=== PATIENT | female | born 1955 | race Caucasian/White ===

== ENCOUNTER 2025-02-27 19:53 | Inpatient (IN) | payer MEDICARE, SELFPAY ==
[2025-02-27 15:15] VITALS: BP 152/92
[2025-02-27 15:16] VITALS: BMI 37.2
--- NOTE | 2025-02-27 15:48 | ED.GENMED ---
History of Present Illness
General
Chief Complaint: Facial Problem
Source: patient
Exam Limitations: none
Time Seen by Provider: 02/27/25 15:37
Nursing documentation reviewed up to this point in time: agreed with
History of Present Illness
History of Present Illness:
The patient is a 69-year-old female who reports that she was diagnosed with herpes zoster, affecting her left eye, about 2 weeks ago. The diagnosis was confirmed by her day light relief operator. Patient has taken 2 weeks of valacyclovir twice daily as well
as prednisone eyedrops. Patient reports that over the last several days, she has developed 'a numbness, tightness, tingling, and swollen feeling' to her left cheek and left jaw area. The feeling also extends into the left aspect of patient's
mouth, making it difficult for her to chew. Patient has no difficulty speaking or swallowing. Patient reports no fever but occasionally feels chills. She denies headache. Patient was told to go to the emergency department to rule out facial
abscess. Patient also feels slight swelling under her chin. Patient overall feels that it is difficult for her to chew and smile due to this feeling. Patient feels as though her face 'feels twisted'. Patient denies weakness and numbness of her
left arm and leg. She has had no difficulty walking. She denies dizziness.
Past History
Past History
ED Past Medical History: Hypercholesterolemia and Hypothyroidism
ED Past Surgical History: Other
Social History
Tobacco: Non-smoker
Alcohol: Occasional
Drug: None
Personal:
Living: with family
Employment: Other
Family History
Family History: Other
Review of Systems
Review of Systems
Allergies reviewed?: Yes
All Other Systems: ROS reviewed and negative except as documented in HPI and ROS
Constitutional: Reports chills
EENT: Reports mouth pain and other
Respiratory: Reports no symptoms
Cardiac: Reports no symptoms
ABD/GI: Reports no symptoms
: Reports no symptoms
Musculoskeletal: Reports no symptoms
Skin: Reports no symptoms
Neurological: Reports numbness (Tingling and numbness feeling to left cheek and under her left chin and left lips and left side of mouth.)
Endocrine: Reports no symptoms
Hematologic/Lymphatic: Reports no symptoms
Psychiatric: Reports no symptoms
Phy Exam
Physical Exam
Physical Exam:
Physical Exam
General: no apparent distress, not acutely ill. Patient's face appears slightly asymmetric.
Neck: supple. no meningeal signs. normal posterior pharynx. Airway is widely patent. No stridor. Able to swallow saliva. Face looks slightly asymmetric. Difficulty smiling 'due to pain and tightness of left face'.
Mild tenderness along left jawline area and under chin. Mild swelling and tenderness of skin of left cheek and left angle of mandible area. Lymphadenopathy under chin.
Heart: s1/s2 regular rate and rhythm, no murmur. equal radial pulses.
Lungs: no acute respiratory distress. clear bilaterally
Abdomen: Soft, nontender
Neuro: alert and oriented. Patient reports diminished sensation along left cheek, under left chin and along left jawline. 5 out of 5 strength in all extremities. Equal sensation in bilateral extremities. Extraocular
muscles intact.
Skin: no rash. Mild left facial skin tenderness and swelling
Psychiatric: well kept. interactive and cooperative
Extremities: no edema. no calf tenderness. negative homans. good distal pulses
Course
Orders/Labs/Results
Orders:
Orders
02/27/25 15:47
CT Facial Bones W/ Iv Contrast Urgent
Comment:
Reason For Exam: shingles zoster now with left facial swelling
02/27/25 16:03
Complete Blood Count/With Diff Urgent
Comprehensive Metabolic Panel Urgent
02/27/25 18:17
Clindamycin 600 mg/50 ml [Cleocin] 600 mg in 50 ml IV NOW
02/27/25 18:34
Meropenem [Merrem] 1,000 mg IV NOW STA
02/27/25 18:46
Sterile Water [Sterile Water For Injection] 20 ml .ROUTE .STK-MED
02/27/25 19:24
0.9% Sodium Chloride 500 ml [Nss] 500 ml IV BOLUS
Abnormal Lab Results
02/27/25
16:03
WBC 12.5 H 10^3/uL
(4.8-10.8)
MCHC 32.9 L g/dL
(33.0-37.0)
RDW 14.9 H %
(11.5-14.5)
Absolute Neuts (auto) 8.6 H 10^3/uL
(1.4-6.5)
Absolute Monos (auto) 1.1 H 10^3/uL
(0.1-0.6)
Creatinine 0.5 L mg/dL
(0.6-1.0)
Glucose 110 H mg/dl
(70-99)
02/27/25 16:03
02/27/25 16:03
Vital Signs
Initial and Last Documented VS:
Initial Vital Signs
Temp Pulse Resp Pulse Ox
98.3 F 88 16 98
02/27/25 13:37 02/27/25 13:37 02/27/25 13:37 02/27/25 13:37
Last Documented Vital Signs
Temp Pulse Resp BP Pulse Ox
98.6 F 92 18 170/93 93
02/27/25 18:09 02/27/25 18:42 02/27/25 18:42 02/27/25 18:42 02/27/25 18:42
MDM/Problems Addressed
Differential Diagnosis Includes:
Pink's palsy, facial cellulitis, dental abscess
MDM/Problems Addressed:
Patient presents with swelling, tightness of left face and jawline with swollen lymph nodes
Acute Exacerbation and/or Progression of Chronic Illness:
Patient is acutely hypertensive, likely due to anxiety and discomfort in face
Acute Exacerbation and/or Progression of Chronic Illness: HTN
*Radiology
Radiology exam reviewed: radiology read reviewed
*Pulse Oximetry
Patient hypoxic: no
*EKG
Interpreted by ED Provider?: NA
*Engineering Test Mechanic Interpretation
Rate: Engineering Test Mechanic- N/A
*Critical Care Note
Total Time (30-74mins, 75-104mins- exclusive of procedures): Not Applicable
Data Reviewed
Source: patient
Patient Management
Social determinants of health affecting care: Living situation and Strong social support
Discussion with other providers: Hospitalist and Other
Escalation/DeEscalation of care consider admission/obs:
Case discussed with infectious disease who recommended meropenem
ED Attending Note
-
Portions of this chart may have been created with voice recognition software.� Occasional wrong word or��sound alike� substitutions may have occurred due to the inherent limitations of voice recognition software.
Discharge Plan
Departure
Patient Disposition: Admit
Date of Disposition: 02/27/25
Time of Disposition: 18:10
Admit to: Med/Surg
Presentation/result/management discussed w/ accepting MD/DO: Hospitalist
Condition: Good
Covid-19: Not Applicable
Discharge Problem:
Left facial cellulitis
Prescriptions:
No Action
atorvastatin [Lipitor] 20 mg Tablet
20 mg PO QPM
fexofenadine [Judy] 60 mg Tablet
60 mg PO DAILY
valacyclovir [Valtrex] 500 mg Tablet
500 mg PO BID
Rx Instructions:
for 30 days starting 02/12/25
levothyroxine [Synthroid] 75 mcg Tablet
75 mcg PO DAILY
prednisolone acetate 1 % Drops,Suspension
1 drp LEFT EYE BID
ibuprofen [Motrin] 400 mg Tablet
400 mg PO Q6HPRN PRN (Reason: mild pain)
Referrals:
UNKNOWN - PT DOES,NOT KNOW [Family Provider] -
Interventions
Interventions:
*Risk Screen - Suicide Last Done: 02/27/25 13:37
*General Assessment Last Done: 02/27/25 14:03
*Neglect/Abuse Screening Last Done: 02/27/25 13:37
*ED- Fall Risk Assessment Last Done: 02/27/25 14:03
*ED COVID-19 Vaccine History Last Done: 02/27/25 14:03
ED- Neurological Assessment Last Done: 02/27/25 14:03
ED-Skin Assessment Last Done: 02/27/25 14:03
Discharge Date and Time
Print Language: AZERI
[2025-02-27 16:11] LABS: % Basophils 0.5 % (0-2); % Eosinophils 0.6 % (0-6); % Immature Granulocytes 0.3 % (0-0.5); % Lymphocytes 21.1 % (20.5-51.1); % Neutrophils 68.5 % (42.2-75.2); Absolute Basophils 0.1 10^3/uL (0-0.2); Absolute Eosinophils 0.1 10^3/uL (0-0.7); Absolute Lymphocytes 2.6 10^3/uL (1.2-3.4); Absolute Monocytes 1.1 10^3/uL (0.1-0.6); Absolute Neutrophils 8.6 10^3/uL (1.4-6.5); Hematocrit 42.8 % (37.0-47.0); Hemoglobin 14.1 g/dL (12.0-16.0); Mean Corp Hgb Conc. 32.9 g/dL (33.0-37.0); Mean Corpuscular Hgb 29.9 pg (27.0-31.0); Mean Corpuscular Volume 90.7 fL (81.0-99.0); Mean Platelet Volume 9.8 fL (7.4-10.4); Nucleated Red Blood Cells % 0 %; Platelet Count 357 10^3/uL (130-400); Red Blood Cell Count 4.72 10^6/uL (4.20-5.40); Red Cell Dist. Width 14.9 % (11.5-14.5); White Blood Cell Count 12.5 10^3/uL (4.8-10.8)
[2025-02-27 16:30] LABS: ALT (SGPT) 18 U/L (0-35); AST (SGOT) 23 U/L (14-36); Alkaline Phosphatase 89 U/L (38-126); Blood Urea Nitrogen 15 mg/dl (7-17); Calcium 10.1 mg/dl (8.4-10.2); Carbon Dioxide 29 mmol/L (22-30); Chloride 101 mmol/L (98-107); Estimated Creatinine Clearance 100 ml/min; Glucose 110 mg/dl (70-99); Potassium 4.1 mmol/L (3.5-5.1); Sodium 142 mmol/L (135-145); Total Bilirubin 1.2 mg/dl (0.2-1.3); Total Protein 8.2 g/dl (6.3-8.2); eGFR > 60.00
--- NOTE | 2025-02-27 18:24 | HPS.HSE ---
Addendum entered and electronically signed by Ivonne Pruitt MD 02/27/25 20:41:
patient has a history of psoriatic arthritis but is not on immunosuppressants (trialed in past and ineffective)
Addendum entered and electronically signed by Ivonne Pruitt MD 02/27/25 19:35:
IV Meropenem started in setting of severe allergic reaction to pencillin
Original Note:
Family Physician
-
Family Physician: NOT KNOW UNKNOWN - PT DOES
Chief Complaint
-
left cheek and jawline swelling
History of Present Illness
Ms. Mikayla Lanier is a 69 yo woman with hx hypothyroidism, HLD, recent diagnosis herpes zoster affecting left eye s/p 2 weeks of Valacyclovir and prednisone eye drops presents to the ER with tightness and swelling to left side of face.
Patient states last month she had a significant viral infection with high fevers and fatigue. Fevers resolved. She then noticed discomfort in left eye. She saw clerk telegraph service who diagnosed her with herpes zoster ophthalmicus. She denies having
lesions on her face or skin. With treatment of Valacyclovir and drops, symptoms are much improved but continues to get intermittent pain. Yesterday she noticed left cheek pain and tightness. She is having trouble eating solid food. No trouble
breathing or swallowing.
No fevers/chills. No nausea/vomiting. No abdominal pain. NO rash or LE swelling.
Medical History
Past Medical History
Past Medical History: Reports HTN and Hypothyroidism
Past Surgical History: Reports Other
Social History
Tobacco: Non-smoker
Alcohol: None
Family History
Family History: Not pertinent
Allergies / Home Medications
Allergies reflects when Allergies were last updated in [facility].
Home Medications with original date entered in [facility]
Allergy/Medication List:
Allergies
Allergy/AdvReac Type Severity Reaction Status Date / Time
aspirin Allergy Hives Verified 02/27/25 15:17
Penicillins Allergy Anaphylaxis Verified 02/27/25 15:17
Home Medications
atorvastatin 20 mg tablet (Lipitor) 20 mg PO QPM 02/27/25
fexofenadine 60 mg tablet 60 mg PO DAILY 02/27/25
ibuprofen 400 mg tablet 400 mg PO Q6HPRN PRN mild pain 02/27/25
levothyroxine 75 mcg tablet (Synthroid) 75 mcg PO DAILY 02/27/25
prednisolone acetate 1 % eye drops,suspension 1 drp LEFT EYE BID 02/27/25
valacyclovir 500 mg tablet (Valtrex) 500 mg PO BID 02/27/25
Review of Systems
-
History Source: Patient
A 12 point ROS was completed and negative except as noted: Yes
Physical Exam
Vital Signs
Vital Signs
Temp Pulse Resp BP Pulse Ox
98.6 F 92 18 152/92 95
02/27/25 18:09 02/27/25 18:09 02/27/25 18:09 02/27/25 15:15 02/27/25 18:09
Physical Exam
General: No Apparent Distress
HEENT: PERRLA (sclera non erythematous, no discharge ) and Other (left lower cheek with swelling, tenderness to cough, tender lymphadenopathy )
Respiratory: Clear; No Wheezes
Cardiac: S1/S2 and Regular Rhythm
GI: Soft and Non Tender
Musculoskeletal: No Edema
Skin: Warm and Dry; No Rash
Neuro: AO x 3
Psych: Calm
Laboratory Results
-
02/27/25 16:03
02/27/25 16:03
Laboratory Results
Total Bilirubin 1.2 mg/dl (0.2-1.3) 02/27/25 16:03
AST 23 U/L (14-36) 02/27/25 16:03
ALT 18 U/L (0-35) 02/27/25 16:03
Alkaline Phosphatase 89 U/L (38-126) 02/27/25 16:03
Data Reviewed
-
Diagnostic Radiology: Report Reviewed by me
Lab Data: Labs Reviewed by me
Impression/Plan
-
Ms. Mikayla Lanier is a 69 yo woman with hx hypothyroidism, HLD, recent diagnosis herpes zoster affecting left eye s/p 2 weeks of Valacyclovir and prednisone eye drops presents to the ER with tightness and swelling to left side of face.
Triage VS: T 98.3, P 88, RR 16, SpO2 98%
LABS: WBC 12.5, Hg 14.1, PLT 357, Na 142, K+ 4.1, Cl 101, CO2 29, Cr 0.5, Glucose [address]
IMPRESSION:
Some edematous changes of the superficial left facial soft tissues with no findings to confirm well-formed abnormal focal fluid collection such as an abscess.
Numerous bilateral cervical lymph nodes, slightly greater in size/number throughout the soft tissues of the left neck as compared to the right.
Left Facial Cellulitis
Sepsis 2/2 above (elevated WBC, P > 90)
-no zoster lesions that would explain superimposed bacterial infection
-case discussed between ER and Dr. Medina, will continue IV Meropenem
-IVF
-formal ID consult tomorrow
Recent treatment Herpes Zoster Ophthalmicus
-continue Valacyclovir and prednisolone drops
Hypothyroidism - CLOSING MANAGER Synthroid
HLD - CLOSING MANAGER Statin
DVT PPx Lovenox subQ
FULL CODE
[2025-02-27 18:42] VITALS: BP 170/93
[2025-02-27] MEDS: MERREM 1000 MG IV (19:05)
[2025-02-27] MEDS: NSS 500 IV (19:35)
[2025-02-27 21:25] VITALS: BP 147/83
[2025-02-27] MEDS: NSS 1000 IV (22:11)
[2025-02-27] MEDS: PRED FORTE 1% EYE DROPS 1 DROP LEFT EYE (22:12)
[2025-02-27] MEDS: VALTREX 500 MG PO (22:13)
[2025-02-27] MEDS: MOTRIN 400 MG PO (22:36)
[2025-02-27 22:39] VITALS: BP 157/77
[2025-02-28] MEDS: STERILE WATER FOR INJECTION 20 ML IV ×3 (02:19→18:44)
[2025-02-28] MEDS: MERREM 1000 MG IV ×3 (02:19→18:48)
[2025-02-28 05:35] LABS: % Basophils 0.6 % (0-2); % Eosinophils 1.5 % (0-6); % Immature Granulocytes 0.2 % (0-0.5); % Lymphocytes 25.9 % (20.5-51.1); % Monocytes 9.5 % (1.7-9.3); % Neutrophils 62.3 % (42.2-75.2); Absolute Basophils 0.1 10^3/uL (0-0.2); Absolute Eosinophils 0.2 10^3/uL (0-0.7); Absolute Lymphocytes 2.5 10^3/uL (1.2-3.4); Absolute Monocytes 0.9 10^3/uL (0.1-0.6); Mean Corp Hgb Conc. 33.3 g/dL (33.0-37.0); Mean Corpuscular Hgb 30.1 pg (27.0-31.0); Mean Corpuscular Volume 90.3 fL (81.0-99.0); Mean Platelet Volume 9.8 fL (7.4-10.4); Nucleated Red Blood Cells % 0 %; Platelet Count 314 10^3/uL (130-400); Red Blood Cell Count 4.32 10^6/uL (4.20-5.40); White Blood Cell Count 9.7 10^3/uL (4.8-10.8)
[2025-02-28 06:02] LABS: Blood Urea Nitrogen 14 mg/dl (7-17); Calcium 9.4 mg/dl (8.4-10.2); Carbon Dioxide 27 mmol/L (22-30); Chloride 108 mmol/L (98-107); Estimated Creatinine Clearance 100 ml/min; Glucose 86 mg/dl (70-99); Potassium 3.9 mmol/L (3.5-5.1); Sodium 142 mmol/L (135-145); eGFR > 60.00
[2025-02-28 06:49] LABS: Hepatitis C Antibody Negative (Negative)
[2025-02-28 07:00] VITALS: BP 143/67
[2025-02-28] MEDS: CLARITIN 10 MG PO (08:22)
[2025-02-28] MEDS: VALTREX 500 MG PO ×2 (08:22→20:33)
[2025-02-28] MEDS: SYNTHROID 75 MCG PO (08:22)
[2025-02-28] MEDS: PRED FORTE 1% EYE DROPS 1 DROP LEFT EYE ×2 (08:22→22:06)
--- NOTE | 2025-02-28 12:41 | CON.ID ---
Consultation
-
Date/Time Consultation Requested: February 27, [id number]
Date/Time Consultation Performed: February 28, 2025 1245
Requesting Provider: Dr. Ivonne Pruitt
Performing Provider: Dr. Ashlie Bhatti
Reason for Consultation: Facial cellulitis
Chief Complaint / Past History
Chief Complaint
Left face swelling and firmness.
History of Present Illness
69-year-old female with history of psoriatic arthritis currently not on treatment, hypothyroidism who presented to the hospital on February 27 due to left face discomfort and swelling. She started feeling unwell back in December 2024 when she had
persistent fever, fatigue, chills, dry cough. She was diagnosed with viral illness by her PCP. She was prescribed an antibiotic. Her symptoms lasted for a month then resolved. During the viral illness, she noted persistent left eye tearing,
discomfort, light sensitivity, mild blurriness. Her PCP prescribed eyedrops without improvement. She finally went to see her wildlife conservation professor 2 weeks ago, end of January. The wildlife conservation professor told her she had intraocular herpes zoster and prescribed
Valacyclovir 500 mg p.o. twice daily, lifelong, plus steroid drops. Of note patient without external lesions. She recalled getting one dose (not 2) of shingles vaccine 7 years ago. Her left eye symptoms improved on valacyclovir and steroid drops.
She had follow-up with the wildlife conservation professor 1 week ago and noted significant improvement in exam. Patient lives in [place] but has a house in [facility]. She came up to [place] a week ago. 2 days ago she noted bilateral jaw pain and
facial tightness. The left side of her face then became edematous, warm to the touch. She had difficulty speaking and swallowing. Positive chills. No fever. She came to the ER yesterday. CT of the facial bone showed edematous changes of the
superficial left facial soft tissue without abscess, numerous bilateral cervical lymph nodes left greater than right. She has history of anaphylaxis with penicillin about 15 years ago. She was started on IV meropenem yesterday. Today she reports
that the swelling has improved. She can now speak and swallow better. She denies any wounds or abrasions on her face. She does not shave her face. No specific tooth pain. She lives by herself. No ill contacts. No recent travel. No pets. No
recent headache, sinus congestion, or sore throat.
Past History
Additional Past Medical History:
Psoriatic arthritis not on tx (last biologic 06/2024)
Hypothyroidism
HLD
Recent Herpes zoster ophthalmicus in left eye
Additional Past Surgical History:
Cataract surgery
Partial thyroidectomy
Allergy History:
aspirin Allergy (Verified 02/27/25 15:17)
Hives
Penicillins Allergy (Verified 02/27/25 15:17)
Anaphylaxis
Medications Reviewed: Yes
Current Antibiotics:
Meropenem 1g IV q8
Valacyclovir 500mg po bid (suppressive tx)
Social History
Tobacco: Non-Smoker
Alcohol: None
Drug: None
Living: Alone
Employment: Not Employed
Family History
Family History: Not Pertinent
Review of Systems
Review of Systems
General: Chills and Change in Appetite
HEENT: Negative Stiff Neck, Sinus Problems, Headache or Pharyngitis
Cardiovascular: Negative Chest Pain or Dyspnea
Respiratory: Negative Dyspnea or Cough
Gasteroenterology: Negative Nausea, Vomiting or Diarrhea
Genital / Urological: Negative Dysuria or Flank Pain
Endocrine: Negative Weakness
Neurological: Negative Dizziness
All systems: All other systems were reviewed and were negative
Vital Signs
Temp Pulse Resp BP Pulse Ox
98.1 F 72 16 143/67 97
02/28/25 07:00 02/28/25 07:00 02/28/25 07:00 02/28/25 07:00 02/28/25 07:00
Physical Exam
Physical Exam
Constitutional: No Acute Distress and Comfortable
Head: Other (left lower half of face with mild edema, slightly warm, no erythema)
Eyes: Pupils Equal, Pupils Round, No Conjunctival Hemorrhage and Sclera Anicteric; Negative Ocular Discharge
Pharynx: Benign
Oral: Negative No Ulcers
Lymph Nodes: Lymphadenopathy (left submandibular)
Cardiovascular: Regular Rate and S1/S2
Pulmonary: Clear
Gastrointestinal: Soft, Non Tender, Non Distended and Normal Bowel Sounds
Genito-Urinary: Negative CVA Tenderness
Extremities: Negative Edema
Neurological: AO x 3
Lab / Diagnostic Study Results
02/28/25 05:27
02/28/25 05:27
Abs Immat Gran (auto) 0.0 10^3/uL (0-0.05) 02/28/25 05:27
Absolute Neuts (auto) 6.0 10^3/uL (1.4-6.5) 02/28/25 05:27
Absolute Lymphs (auto) 2.5 10^3/uL (1.2-3.4) 02/28/25 05:27
Absolute Monos (auto) 0.9 10^3/uL (0.1-0.6) H 02/28/25 05:27
Absolute Basos (auto) 0.1 10^3/uL (0-0.2) 02/28/25 05:27
Immature Gran % 0.2 % (0-0.5) 02/28/25 05:27
Neutrophils % 62.3 % (42.2-75.2) 02/28/25 05:27
Lymphocytes % 25.9 % (20.5-51.1) 02/28/25 05:27
Monocytes % 9.5 % (1.7-9.3) H 02/28/25 05:27
Eosinophils % 1.5 % (0-6) 02/28/25 05:27
Basophils % 0.6 % (0-2) 02/28/25 05:27
Microbiology Results
02/27/25 CT facial bones: Some edematous changes of the superficial left facial soft tissues with no findings to confirm well-formed abnormal focal fluid collection such as an abscess. Numerous bilateral cervical lymph nodes, slightly greater in
size/number throughout the soft tissues of the left neck as compared to the right.
Assessment / Plan
# Left face cellulitis
# PCN allergy - anaphylaxis. Never had cephalosporin
- CT face: no abscess
- Cellulitis improving on meropenem (d2)
- If continues to improve tomorrow, can dc on Linezolid 600mg po bid through 03/05/25
Avoid tyramine-rich food products while on Linezolid.
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
-Left orbit discomfort x 4-6 weeks then diagnosed with left intraocular herpes zoster 2 weeks ago, placed on lifelong Valacyclovir 500mg bid.
- Left orbit sxs resolved
- Follow-up with ophtho.
- DC airborne isolation.
# Conditions LIMITED RADIOLOGY TECHNICIAN
Psoriatic arthritis not on tx (last biologic 06/2024)
Hypothyroidism
HLD
Recent Herpes zoster ophthalmicus in left eye
[2025-02-28] MEDS: MOTRIN 400 MG PO ×2 (14:19→20:41)
--- NOTE | 2025-02-28 14:25 | W.PN.HOSP.TC ---
Today's Communication/Plan
-
Monitor vital signs see plan
Continue with antibiotics
On antiviral
Assessment / Plan
Assessment / Plan
General: No Apparent Distress
HEENT: PERRLA (sclera non erythematous, no discharge ) and Other (left lower cheek with swelling, tenderness to cough, tender lymphadenopathy )
Respiratory: Clear; No Wheezes
Cardiac: S1/S2 and Regular Rhythm
GI: Soft and Non Tender
Musculoskeletal: No Edema
Skin: Warm and Dry; No Rash
Neuro: AO x 3
Psych: Calm
Left Facial Cellulitis
Sepsis 2/2 above (elevated WBC, P > 90)
-no zoster lesions that would explain superimposed bacterial infection
-case discussed between ER and Dr. Medina, will continue IV Meropenem
-IVF
ID evaluation
Recent treatment Herpes Zoster Ophthalmicus
-continue Valacyclovir and prednisolone drops
Per patient, per her recent examination this was getting better
Hypothyroidism - TECHNICAL SERVICE REPRESENTATIVE Synthroid
History of psoriatic arthritis however currently not on any immunosuppressant
Monitor
HLD - TECHNICAL SERVICE REPRESENTATIVE Statin
DVT PPx Lovenox subQ
FULL CODE
Anticipated Discharge: 24 - 48 hours
Subjective/Interval History
-
Date of Service: February 28, 2025
Denies nausea
Objective Data
-
Labs:
Laboratory Results
02/28/25
05:27
WBC 9.7
Hgb 13.0
Hct 39.0
Plt Count 314
Sodium 142
Potassium 3.9
Chloride 108 H
Carbon Dioxide 27
BUN 14
Creatinine 0.5 L
Glucose 86
Calcium 9.4
Vital Signs:
Vital Signs
Temp Pulse Resp BP Pulse Ox
98.1 F 72 16 143/67 97
02/28/25 07:00 02/28/25 07:00 02/28/25 07:00 02/28/25 07:00 02/28/25 07:00
I&O
02/27/25 02/28/25 03/01/25
06:59 06:59 06:59
Intake Total 1280 / 1280
Balance 1280 / 1280
[2025-02-28 14:40] VITALS: BP 153/67
[2025-02-28 16:03] VITALS: BMI 37.1
[2025-02-28 18:04] VITALS: BP 149/74
--- NOTE | 2025-02-28 18:29 | PTCARENOTE ---
pt transferred from ED AOx3 denies pain. LCTA B/L RA. abd round obese +BSx4. cont b&B. only trace edema noted to left posterior cheek/jawline. No redness or warmth. CB in reach- instructed to use
[2025-02-28] MEDS: LOVENOX 40 MG SC (18:39)
[2025-02-28] MEDS: LIPITOR 20 MG PO (18:39)
[2025-02-28] MEDS: MERREM IV (22:01)
[2025-02-28] MEDS: STERILE WATER FOR INJECTION IV (22:01)
[2025-02-28 23:00] VITALS: BP 117/60
[2025-03-01] MEDS: STERILE WATER FOR INJECTION 20 ML IV ×2 (04:11→10:13)
[2025-03-01] MEDS: MERREM 1000 MG IV ×2 (04:11→10:13)
[2025-03-01] MEDS: SYNTHROID 75 MCG PO (05:13)
[2025-03-01 06:38] LABS: % Basophils 0.7 % (0-2); % Eosinophils 3.4 % (0-6); % Immature Granulocytes 0.5 % (0-0.5); % Lymphocytes 24.5 % (20.5-51.1); % Monocytes 8.6 % (1.7-9.3); % Neutrophils 62.3 % (42.2-75.2); Absolute Basophils 0.1 10^3/uL (0-0.2); Absolute Eosinophils 0.3 10^3/uL (0-0.7); Absolute Lymphocytes 1.9 10^3/uL (1.2-3.4); Absolute Monocytes 0.7 10^3/uL (0.1-0.6); Absolute Neutrophils 4.8 10^3/uL (1.4-6.5); Hematocrit 37.3 % (37.0-47.0); Hemoglobin 12.2 g/dL (12.0-16.0); Mean Corp Hgb Conc. 32.7 g/dL (33.0-37.0); Mean Corpuscular Hgb 29.7 pg (27.0-31.0); Mean Corpuscular Volume 90.8 fL (81.0-99.0); Mean Platelet Volume 9.6 fL (7.4-10.4); Nucleated Red Blood Cells % 0 %; Platelet Count 305 10^3/uL (130-400); Red Blood Cell Count 4.11 10^6/uL (4.20-5.40); White Blood Cell Count 7.7 10^3/uL (4.8-10.8)
[2025-03-01 06:56] LABS: Blood Urea Nitrogen 16 mg/dl (7-17); Calcium 9.2 mg/dl (8.4-10.2); Carbon Dioxide 28 mmol/L (22-30); Chloride 105 mmol/L (98-107); Estimated Creatinine Clearance 100 ml/min; Glucose 94 mg/dl (70-99); Potassium 3.9 mmol/L (3.5-5.1); Sodium 142 mmol/L (135-145); eGFR > 60.00
[2025-03-01 07:00] VITALS: BP 146/77
[2025-03-01] MEDS: VALTREX 500 MG PO (10:08)
[2025-03-01] MEDS: CLARITIN 10 MG PO (10:08)
[2025-03-01] MEDS: PRED FORTE 1% EYE DROPS 1 DROP LEFT EYE (10:15)
--- NOTE | 2025-03-01 12:00 | W.PN.HOSP.TC ---
Today's Communication/Plan
-
Monitor vital signs see plan
Discussed with infectious disease, transition antibiotics to linezolid on discharge
Time of discharge 36 minutes
Assessment / Plan
Assessment / Plan
General: No Apparent Distress
HEENT: PERRLA (sclera non erythematous, no discharge ) and cheek erythema much better
Respiratory: Clear; No Wheezes
Cardiac: S1/S2 and Regular Rhythm
GI: Soft and Non Tender
Musculoskeletal: No Edema
Skin: Warm and Dry; No Rash
Neuro: AO x 3
Psych: Calm
Left Facial Cellulitis
Sepsis 2/2 above (elevated WBC, P > 90)
-no zoster lesions that would explain superimposed bacterial infection
-case discussed between ER and Dr. Medina, will continue IV Meropenem
-IVF
ID following, discussed with infectious disease today and will transition to linezolid and discharge
Recent treatment Herpes Zoster Ophthalmicus
-continue Valacyclovir and prednisolone drops
Per patient, per her recent examination this was getting better
Hypothyroidism - SCALEMAN Synthroid
History of psoriatic arthritis however currently not on any immunosuppressant
Monitor
HLD - SCALEMAN Statin
DVT PPx Lovenox subQ
FULL CODE
Anticipated Discharge: Today
Subjective/Interval History
-
Date of Service: March 01, 2025
Feeling better
Objective Data
-
Labs:
Laboratory Results
03/01/25
06:08
WBC 7.7
Hgb 12.2
Hct 37.3
Plt Count 305
Sodium 142
Potassium 3.9
Chloride 105
Carbon Dioxide 28
BUN 16
Creatinine 0.5 L
Glucose 94
Calcium 9.2
Vital Signs:
Vital Signs
Temp Pulse Resp BP Pulse Ox
97.4 F 72 16 146/77 93
03/01/25 07:00 03/01/25 07:00 03/01/25 07:00 03/01/25 07:00 03/01/25 07:00
I&O
02/28/25 03/01/25 03/02/25
06:59 06:59 06:59
Intake Total 1280 / 1280 240 / 240 400 / 400
Balance 1280 / 1280 240 / 240 400 / 400
--- NOTE | 2025-03-01 12:31 | W.DCSUMMARY ---
Discharge Summary
Discharge Data
Date of Admission: 02/27/25
Date of Discharge: 03/01/25
-
Pending Results: No
Hospital Course
69-year-old female with past medical history of psoriatic arthritis, hypothyroidism, herpes zoster ophthalmicus came to the hospital with sepsis secondary to left facial cellulitis. Patient was seen by infectious disease throughout hospitalization.
Initially patient was started on IV meropenem which was later transitioned to p.o. linezolid on discharge. Once patient's symptoms continue to improve, she was then discharged home with instructions to follow-up with all her physicians outpatient.
Discharge Plan
-
Patient Disposition: Home (Routine Discharge)
Discharge Diagnosis/Procedures: Left facial cellulitis
Diet: As tolerated and Other diet
Additional Diets: Avoid tyramine-rich food products while on Linezolid.
Activity: As tolerated
Driving Restrictions: As prior to admission
Bathing Restrictions: None
Referrals:
UNKNOWN - PT DOES,NOT KNOW [Family Provider] - in less than 1 week
Ashley Medina MD [Active] -
Prescriptions:
New
linezolid 600 mg tablet
600 mg PO Q12H 5 Days Qty: 10 0RF
Continued
atorvastatin [Lipitor] 20 mg Tablet
20 mg PO QPM
fexofenadine 60 mg Tablet
60 mg PO DAILY
valacyclovir [Valtrex] 500 mg Tablet
500 mg PO BID
Rx Instructions:
for 30 days starting 02/12/25
levothyroxine [Synthroid] 75 mcg Tablet
75 mcg PO DAILY
prednisolone acetate 1 % Drops,Suspension
1 drp LEFT EYE BID
ibuprofen 400 mg Tablet
400 mg PO Q6HPRN PRN (Reason: mild pain)
Discharge Orders:
Discharge Patient (As Directed); Ordered 03/01/25
Ordered By: Reed King
Discharge Date and Time
Discharge Date/Time: 03/01/25 12:59
Print Language: IRANIAN
[2025-03-01 12:50] VITALS: BP 136/72
--- NOTE | 2025-03-01 13:00 | CM ---
Patient seen at bedside
IA COMPLETED
Lives in 1 story home alone, no steps
PLOF: Independent
Denies DME
Denies vn/rehab
PCP: Dr. Kanika Espinosa
Pharmacy: [address], [place]
PLAN: home, no needs
drove self
== END 2025-03-01 12:59 | disposition home or self-care (01) | DRG 872 ==
LOC: 3 WEST ACU 19:53
PROVIDERS: ADMITTING PHYSICIAN Student in an Organized Health Care Education/Training Program; ATTENDING PHYSICIAN Internal Medicine; EMERGENCY PHYSICIAN Emergency Medicine; OTHER PHYSICIAN Internal Medicine Infectious Disease
DX: A41.9 Sepsis, unspecified organism (principal); L03.211 Cellulitis of face; B02.30 Zoster ocular disease, unspecified; L40.50 Arthropathic psoriasis, unspecified; E03.9 Hypothyroidism, unspecified; Z79.890 Hormone replacement therapy; E78.00 Pure hypercholesterolemia, unspecified; Z88.0 Allergy status to penicillin; Z88.6 Allergy status to analgesic agent; I10 Essential (primary) hypertension; Z87.892 Personal history of anaphylaxis
CPT/HCPCS: 70487; 80048; 80053; 83735; 85025; 86803; 96374; 99285; J2185; Q9967